=== PATIENT | female | born 1975 | race Two or more races ===

== ENCOUNTER 2022-04-05 12:16 | Emergency (ER) | payer MEDICAID ==
[~2022-04-05] VITALS: Ht 162.6 cm; Wt 97.0 kg
[2022-04-05 12:41] VITALS: BP 170/99
[2022-04-05] MEDS ORDERED: NAPROXEN 250MG TABLET PO ONE (13:45)
[2022-04-05 14:22] LABS: CLARITY URINE CLEAR (CLEAR); COLOR URINE YELLOW (YELLOW); KETONES URINE NEGATIVE (NEGATIVE); LEUKOCYTE ESTERASE URINE NEGATIVE (NEGATIVE); NITRITE URINE NEGATIVE (NEGATIVE); OCCULT BLOOD URINE NEGATIVE (NEGATIVE); PROTEIN URINE NEGATIVE (NEGATIVE); SPECIFIC GRAVITY URINE 1.029 (1.005-1.030); UROBILINOGEN URINE 0.2 E.U./dL (0.2-1.0)
[2022-04-05] MEDS ORDERED: CYCL10TA21 MT (16:26)
[2022-04-05] MEDS ORDERED: NAP5EC MT (16:26)
[2022-04-05] MEDS ORDERED: MICO45CR16 VG (16:29)
[2022-04-05] MEDS ORDERED: DIF15 MT (16:29)
== END 2022-04-05 16:43 | disposition home or self-care (01) ==
LOC: ER 12:16
DX: H92.01 Otalgia, right ear (principal); G89.29 Other chronic pain; M54.50 Low back pain, unspecified; I10 Essential (primary) hypertension; E11.9 Type 2 diabetes mellitus without complications
CPT/HCPCS: 81003; 99283

== ENCOUNTER 2022-07-26 10:07 | Emergency (ER) | payer MEDICAID, OTHER ==
[~2022-07-26] VITALS: Ht 162.6 cm; Wt 97.0 kg
[~2022-07-26 10:07] MED LIST: CYCL10TA21 MT; DIF15 MT; MICO45CR16 VG; NAP5EC MT
[2022-07-26 10:15] VITALS: BP 167/91
[2022-07-26] MEDS ORDERED: FLUORESCEIN SODIUM 1MG/STRIP LEFTEYE ONE ×2 (13:15→14:15)
[2022-07-26] MEDS ORDERED: TETRACAINE 0.5% OPHTH DROPS 4ML LEFTEYE ONE (13:30)
== END 2022-07-26 15:18 | disposition home or self-care (01) ==
LOC: ER 10:07
DX: H57.12 Ocular pain, left eye (principal); I10 Essential (primary) hypertension; E11.9 Type 2 diabetes mellitus without complications; Z98.890 Other specified postprocedural states
CPT/HCPCS: 81025; 99284

== ENCOUNTER 2023-05-30 01:54 | Emergency (ER) | payer MEDICAID, OTHER ==
[~2023-05-30] VITALS: Ht 162.6 cm; Wt 98.0 kg
[2023-05-30 02:39] VITALS: O2SAT 99
[2023-05-30] MEDS ORDERED: FLUTICASONE PROPIONATE 50MCG/SPRAY BOTTLE BOTHNSTRLS STA (05:34)
[2023-05-30] MEDS ORDERED: IBUPROFEN 400MG TABLET PO ONE (05:45)
[2023-05-30] MEDS ORDERED: ACETAMINOPHEN 325MG TABLET PO ONE (05:45)
[2023-05-30 08:43] LABS: CLARITY URINE CLEAR (CLEAR); COLOR URINE YELLOW (YELLOW); GLUCOSE URINE 3+ (NEGATIVE); KETONES URINE 1+ (NEGATIVE); LEUKOCYTE ESTERASE URINE NEGATIVE (NEGATIVE); NITRITE URINE NEGATIVE (NEGATIVE); OCCULT BLOOD URINE NEGATIVE (NEGATIVE); PH URINE 5.5 (4.5-8.0); PROTEIN URINE NEGATIVE (NEGATIVE); SPECIFIC GRAVITY URINE 1.027 (1.005-1.030); UROBILINOGEN URINE 0.2 E.U./dL (0.2-1.0)
[2023-05-30] MEDS ORDERED: TOPUD PO (08:48)
[2023-05-30 09:09] LABS: BACTERIA URINE NONE SEEN; RBC URINE 0-2 /hpf (0-2); SQUAMOUS EPITHELIAL CELL URINE 1+ /lpf (RARE/1+); WBC URINE 0-2 /hpf (0-2); YEAST URINE NONE SEEN
[2023-05-30 09:19] VITALS: BP 160/97; PULSE 86; RESP 18; TEMP 98.5
== END 2023-05-30 09:25 | disposition home or self-care (01) ==
LOC: ER 02:16
DX: B34.9 Viral infection, unspecified (principal); M54.40 Lumbago with sciatica, unspecified side; E11.9 Type 2 diabetes mellitus without complications; I10 Essential (primary) hypertension; Z98.890 Other specified postprocedural states
CPT/HCPCS: 71045; 81003; 99284

== ENCOUNTER 2024-02-06 22:09 | Emergency (ER) | payer MEDICAID ==
[~2024-02-06] VITALS: Ht 167.6 cm; Wt 90.0 kg
[~2024-02-06 22:09] MED LIST changes: +TOPUD PO
[2024-02-06 22:24] VITALS: O2SAT 100
[2024-02-06] MEDS ORDERED: DEXAMETHASONE 4MG/ML 1ML VIAL IM ONE (23:15)
[2024-02-06] MEDS ORDERED: METOCLOPRAMIDE HCL 10MG/2ML VIAL IM ONE (23:15)
[2024-02-06] MEDS ORDERED: KETOROLAC 15MG/ML VIAL IM ONE (23:15)
[2024-02-07] MEDS: KETOROLAC 15MG/ML VIAL IM NR (01:23)
[2024-02-07] MEDS: METOCLOPRAMIDE HCL 10MG/2ML VIAL IM NR (01:27)
[2024-02-07] MEDS: DEXAMETHASONE 4MG/ML 1ML VIAL IM NR (01:27)
[2024-02-07 02:34] VITALS: BP 137/91; PULSE 78; RESP 18; TEMP 37.22520; O2SAT 99
== END 2024-02-07 02:34 | disposition home or self-care (01) ==
LOC: ER 22:09
DX: R51.9 Headache, unspecified (principal); E11.9 Type 2 diabetes mellitus without complications; I10 Essential (primary) hypertension; Z98.890 Other specified postprocedural states; Z79.899 Other long term (current) drug therapy
CPT/HCPCS: 99284; 82962; 96372; J1100; J1885; J2765; Z7610